=== PATIENT | female | born 1995 | race Two or more races ===

== ENCOUNTER 2020-09-14 10:32 | Observation (INO) | payer MEDICAID ==
[2020-09-14] MEDS ORDERED: PREN-96 PO (13:19)
== END 2020-09-14 13:58 | disposition home or self-care (01) ==
LOC: OB 10:32 → LDRP 12:37
PROVIDERS: ADMIT Specialist; ATTEND Specialist
DX: O36.5930 Maternal care for other known or suspected poor fetal growth, third trimester, not applicable or unspecified (principal); O42.92 Full-term premature rupture of membranes, unspecified as to length of time between rupture and onset of labor; O34.219 Maternal care for unspecified type scar from previous cesarean delivery; O62.9 Abnormality of forces of labor, unspecified; Z3A.38 38 weeks gestation of pregnancy
CPT/HCPCS: 59025; 76818; 81002; G0378

== ENCOUNTER 2020-09-19 10:00 | Observation (INO) | payer MEDICAID ==
[~2020-09-19 10:00] MED LIST: PREN-96 PO
== END 2020-09-19 12:34 | disposition home or self-care (01) ==
LOC: LDRP 10:00
PROVIDERS: ADMIT Obstetrics & Gynecology; ATTEND Obstetrics & Gynecology
DX: O36.5930 Maternal care for other known or suspected poor fetal growth, third trimester, not applicable or unspecified (principal); Z20.822 Contact with and (suspected) exposure to COVID-19; Z3A.38 38 weeks gestation of pregnancy
CPT/HCPCS: 59025; 76818; 81002; G0378; U0003

== ENCOUNTER 2020-09-22 04:03 | Inpatient (IN) | payer MEDICAID ==
[2020-09-22] VITALS (16 sets, daily range): BP systolic 102–122; BP diastolic 52–74
[~2020-09-22] VITALS: Ht 162.6 cm; Wt 88.0 kg
[2020-09-22] MEDS ORDERED: ceFAZolin 1GM/50ML 50 ML IV ONE (04:30)
[2020-09-22] MEDS ORDERED: LACTATED RINGER'S 1,000 ML IV ONE (04:30)
[2020-09-22 05:43] LABS: Basophils # (auto) 0 10 ^3/uL (0-0.2); Basophils % (auto) 0.4 % (0.0-2.0); Eosinophils # (auto) 0.1 10 ^3/uL (0-0.8); Hematocrit 38.5 % (36.0-46.0); Hemoglobin 13.5 g/dL (12.2-16.2); Lymphocytes # (auto) 2.1 10 ^3/uL (0.4-5.4); Lymphocytes % (auto) 23.9 % (10.0-50.0); Mean Corpuscular Hemoglobin 31.4 pg (28.0-32.0); Mean Corpuscular Volume 89.6 fL (80.0-100.0); Monocytes # (auto) 0.7 10 ^3/uL (0-1.3); Monocytes % (auto) 7.7 % (0.0-12.0); Neutrophils # (auto) 5.8 10 ^3/uL (1.6-8.6); Red Cell Distribution Width 14.6 % (11.8-14.3); White Blood Cell 8.6 10^3/uL (4.4-10.8)
[2020-09-22 06:02] LABS: INR 0.95 (0.9-1.15); Partial Thromboplastin Time 31.3 sec (23.0-31.2)
[2020-09-22 06:10] LABS: Urine Bacteria NONE SEEN /hpf (None Seen); Urine Blood TRACE /uL (Negative); Urine Specific Gravity 1.012 (1.001-1.035); Urine WBC 4 /hpf (0 - 5)
[2020-09-22 06:17] LABS: Albumin 2.8 g/dL (3.4-5.0); Potassium 3.4 mmol/L (3.5-5.1)
[2020-09-22 06:20] LABS: Bilirubin, Total 0.4 mg/dL (0.2-1.0)
[2020-09-22 06:23] LABS: Alcohol, Urine < 3.0 mg/dL (0-10); Amphetamine Screen, Urine NEGATIVE (NEGATIVE); Barbiturate Scree,Urine NEGATIVE (NEGATIVE); Benzodiazephine Screen, Urine NEGATIVE (NEGATIVE); Cannabinoid Screen, Urine NEGATIVE (NEGATIVE); Cocaine Screen, Urine NEGATIVE (NEGATIVE); Opiate Scree,Urine NEGATIVE (NEGATIVE); Phencyclidine Screen, Urine NEGATIVE (NEGATIVE)
[2020-09-22] MEDS: LACTATED RINGER'S 1,000 ML IV SCH ×3 (06:26→22:42)
[2020-09-22] MEDS ORDERED: TETRACAINE 1% INJ 2 ML VIAL IJ ONE (07:00)
[2020-09-22] MEDS ORDERED: SUCCINYLCHOLINE CHLORIDE 20 MG/ML 10ML VIAL IV ONE (07:21)
[2020-09-22] MEDS ORDERED: fentaNYL CITRATE 100 MCG/2 ML VL ONE (07:22)
[2020-09-22] MEDS ORDERED: MORPHINE SULF(PF) 0.5MG/ML 10ML VIAL ONE (07:22)
[2020-09-22] MEDS ORDERED: PROPOFOL 10 MG/ML 20 ML IV ONE (07:23)
[2020-09-22] MEDS ORDERED: oxyTOCIN 10 UNIT/ML 10ML VIAL ONE (07:23)
[2020-09-22] MEDS ORDERED: ePHEDrine SULFATE 50 MG/ML AMP ONE (07:23)
[2020-09-22] MEDS ORDERED: GLYCOPYRROLATE 0.2 MG/ML 1ML VIAL ONE (07:23)
[2020-09-22] MEDS ORDERED: KETOROLAC TROMETH 30 MG/ML 1ML VIAL IV ONE (07:31)
[2020-09-22] MEDS ORDERED: MORPHINE SULF INJ 2 MG/ML SYRINGE 1ML IV PRN (08:30)
[2020-09-22] MEDS ORDERED: ONDANSETRON HCL 4 MG/2 ML VIAL IV PRN ×2 (08:30→09:15)
[2020-09-22] MEDS ORDERED: LACT. RINGERS/OXYTOCIN 20UNITS 1,000 ML IV ONE (08:30)
[2020-09-22] MEDS ORDERED: GUM (CHEWING) 1 GUM CHEW CHEW ONE (08:30)
[2020-09-22] MEDS ORDERED: diphenhdrAMINE HCL 50 MG/1 ML VL IV PRN (09:15)
[2020-09-22] MEDS ORDERED: NALOXONE HCL 0.4 MG/ML VIAL IV PRN (09:15)
[2020-09-22] MEDS ORDERED: FAMOTIDINE (10MG/ML) 2ML VL IV PRN (09:15)
[2020-09-22] MEDS ORDERED: DexAMETHasone SOD PHOS 10MG/1ML VIAL INJ IV PRN (09:15)
[2020-09-22] MEDS ORDERED: KETOROLAC TROMETH 30 MG/ML 1ML VIAL IV PRN (09:15)
[2020-09-22] MEDS: ONDANSETRON HCL 4 MG/2 ML VIAL IV PRN (11:19)
[2020-09-22] MEDS: ceFAZolin 1GM/50ML 50 ML IV SCH ×2 (14:52→22:40)
[2020-09-22] MEDS ORDERED: ACETAMINOPHEN IV 1000 MG/100ML (10MG/ML) IV ONE (21:00)
[2020-09-22 21:23] LABS: Basophils # (auto) 0 10 ^3/uL (0-0.2); Basophils % (auto) 0.1 % (0.0-2.0); Eosinophils # (auto) 0 10 ^3/uL (0-0.8); Hematocrit 37.2 % (36.0-46.0); Hemoglobin 12.8 g/dL (12.2-16.2); Lymphocytes # (auto) 1.1 10 ^3/uL (0.4-5.4); Lymphocytes % (auto) 9.6 % (10.0-50.0); Mean Corpuscular Hemoglobin 30.9 pg (28.0-32.0); Mean Corpuscular Hgb Conc. 34.3 g/dL (32.0-36.0); Mean Corpuscular Volume 89.9 fL (80.0-100.0); Monocytes # (auto) 0.6 10 ^3/uL (0-1.3); Neutrophils # (auto) 9.5 10 ^3/uL (1.6-8.6); Neutrophils % (auto) 85.3 % (37.0-80.0); Red Blood Cells 4.14 10^6/uL (4.0-5.20); Red Cell Distribution Width 14.5 % (11.8-14.3); White Blood Cell 11.1 10^3/uL (4.4-10.8)
[2020-09-23] VITALS (11 sets, daily range): BP systolic 96–124; BP diastolic 54–79
[2020-09-23] MEDS: ONDANSETRON HCL 4 MG/2 ML VIAL IV PRN ×2 (03:07→10:55)
[2020-09-23] MEDS ORDERED: HYDROmorphone HCL 2 MG/ML VL IV PRN (03:45)
[2020-09-23 07:07] LABS: RPR Non Reactive (Non Reactive)
[2020-09-23] MEDS: ceFAZolin 1GM/50ML 50 ML IV SCH (07:14)
[2020-09-23] MEDS: LACTATED RINGER'S 1,000 ML IV SCH ×3 (07:15→20:30)
[2020-09-23 09:03] LABS: Basophils # (auto) 0 10 ^3/uL (0-0.2); Basophils % (auto) 0.1 % (0.0-2.0); Eosinophils # (auto) 0 10 ^3/uL (0-0.8); Eosinophils % (auto) 0.4 % (0.0-7.0); Hematocrit 37.5 % (36.0-46.0); Hemoglobin 12.8 g/dL (12.2-16.2); Lymphocytes # (auto) 1.1 10 ^3/uL (0.4-5.4); Lymphocytes % (auto) 11.4 % (10.0-50.0); Mean Corpuscular Hemoglobin 31.1 pg (28.0-32.0); Mean Corpuscular Hgb Conc. 34.1 g/dL (32.0-36.0); Mean Corpuscular Volume 91.2 fL (80.0-100.0); Monocytes # (auto) 0.6 10 ^3/uL (0-1.3); Monocytes % (auto) 6.3 % (0.0-12.0); Neutrophils # (auto) 8.2 10 ^3/uL (1.6-8.6); Neutrophils % (auto) 81.8 % (37.0-80.0); Red Blood Cells 4.12 10^6/uL (4.0-5.20); Red Cell Distribution Width 14.8 % (11.8-14.3)
[2020-09-23] MEDS ORDERED: BISACODYL 10 MG RECT SUPP PR PRN (12:45)
[2020-09-23] MEDS: IBUPROFEN 800 MG TAB PO PRN (14:16)
[2020-09-23] MEDS: HYDROcodone-ACET 5/325MG TAB PO PRN ×2 (15:34→19:53)
[2020-09-23] MEDS: SIMETHICONE 80 MG CHEWABLE TABLET PO SCH ×2 (17:23→21:36)
[2020-09-23] MEDS: DOCUSATE SOD 100 MG CAP PO SCH (21:36)
[2020-09-23] MEDS ORDERED: HYDR-4902 PO (23:28)
[2020-09-23] MEDS ORDERED: IBUP100S11 PO ×2 (23:30→23:32)
[2020-09-23] MEDS ORDERED: DOCU-94 PO (23:32)
[2020-09-24] MEDS: IBUPROFEN 800 MG TAB PO PRN ×3 (00:17→16:32)
[2020-09-24 02:54] VITALS: BP 109/64
[2020-09-24] MEDS: LACTATED RINGER'S 1,000 ML IV SCH ×3 (04:30→20:30)
[2020-09-24] MEDS: HYDROcodone-ACET 5/325MG TAB PO PRN ×4 (04:31→21:40)
[2020-09-24] MEDS: SIMETHICONE 80 MG CHEWABLE TABLET PO SCH ×4 (05:27→21:40)
[2020-09-24 07:00] VITALS: BP 102/68
[2020-09-24] MEDS: DOCUSATE SOD 100 MG CAP PO SCH ×2 (09:45→21:40)
[2020-09-24 11:00] VITALS: BP 106/65
[2020-09-24 15:06] VITALS: BP 109/63
[2020-09-24 18:45] VITALS: BP 122/69
[2020-09-24 22:40] VITALS: BP 120/59
[2020-09-25] MEDS: IBUPROFEN 800 MG TAB PO PRN (00:30)
[2020-09-25 02:32] VITALS: BP 111/74
[2020-09-25] MEDS: LACTATED RINGER'S 1,000 ML IV SCH (04:30)
[2020-09-25] MEDS: HYDROcodone-ACET 5/325MG TAB PO PRN ×2 (04:32→08:40)
[2020-09-25] MEDS: SIMETHICONE 80 MG CHEWABLE TABLET PO SCH (05:33)
[2020-09-25 07:12] VITALS: BP 119/73
[2020-09-25] MEDS: DOCUSATE SOD 100 MG CAP PO SCH (08:40)
== END 2020-09-25 10:15 | disposition home or self-care (01) | DRG 540 ==
LOC: LDRP 04:03
PROVIDERS: ADMIT Obstetrics & Gynecology; ATTEND Obstetrics & Gynecology
PROC: 10D00Z1 Extraction of Products of Conception, Low, Open Approach (ICD-10-PCS; principal; 2020-09-22 07:31)
DX: O34.211 Maternal care for low transverse scar from previous cesarean delivery (principal); Z37.0 Single live birth; Z3A.38 38 weeks gestation of pregnancy
CPT/HCPCS: 36415; 59025; 80053; 80307; 81001; 85025; 85610; 85730; 86592; 86850; 86900; 86901; 94760; 94762; 96360; 96361; 96366; 96374; 96375; G0378; J0131; J0330; J0690; J1885; J2405; J2590; J2704